=== PATIENT | male | born 1980 | race Caucasian/White ===

== ENCOUNTER 2018-05-14 15:22 | Inpatient (IN) | payer MEDICARE, MEDICAID ==
[~2018-05-14] VITALS: Ht 167.6 cm; Wt 102.0 kg
[~2018-05-14 15:22] MED LIST: BUPR150SR PO; LITH300T3 PO; QUET100T PO
[2018-05-14 17:59] LABS: BASOPHILS % (AUTO) 0.6 % (0.0-2.0); EOSINOPHILS % (AUTO) 0.9 % (1.0-6.0); HEMATOCRIT 43.8 % (41-53); HEMOGLOBIN 14.9 g/dL (13.5-17.5); LYMPHOCYTES % (AUTO) 23.9 % (22.0-44.0); MEAN CORPUSCULAR HEMOGLOBIN 29.2 pg (26.0-34.0); MEAN CORPUSCULAR VOLUME 86 fL (80-100); MONOCYTES # (AUTO) 0.9 K/uL (0.1-1.0); NEUTROPHILS # (AUTO) 8.6 K/uL (1.8-7.7); NEUTROPHILS % (AUTO) 67.6 % (40.0-70.0); PLATELET COUNT (AUTO) 219 K/uL (150-450); RED CELL DISTRIBUTION WIDTH 13.7 % (11.5-14.5)
[2018-05-14 18:11] LABS: ANION GAP 6 mmol/L (8-16); CALCIUM, TOTAL 8.8 mg/dL (8.8-10.5); CARBON DIOXIDE 29 mmol/L (22-29); CHLORIDE 103 mmol/L (98-107); CREATININE 1.03 mg/dL (0.60-1.30); GLOMERULAR FILTR. RATE CALC > 60 mL/min (>60); GLUCOSE,RANDOM 97 mg/dL (70-110); POTASSIUM 4.2 mmol/L (3.5-5.1); SODIUM SERUM 138 mmol/L (136-145); UREA NITROGEN, BLOOD 14 mg/dL (7-18)
[2018-05-14 18:15] LABS: ALANINE AMINOTRANSFERASE 72 U/L (12-78); ALKALINE PHOSPHATASE 63 U/L (46-116); ASPARTATE AMINOTRANSFERASE 27 U/L (15-37); BILIRUBIN,TOTAL 0.4 mg/dL (0.1-1.0); TOTAL PROTEIN, SERUM 7.6 g/dL (6.4-8.2)
[2018-05-14 18:23] LABS: LITHIUM < 0.20 mmol/L (0.60-1.20)
[2018-05-14] MEDS ORDERED: HYDR50CA10 PO (22:14)
[2018-05-14] MEDS ORDERED: DIVA500T52 PO (22:14)
[2018-05-14] MEDS ORDERED: QUET50TA PO ×2 (22:14)
[2018-05-14] MEDS ORDERED: GENTOS OP (22:14)
[2018-05-14] MEDS ORDERED: PANT40TA25 PO (22:14)
[2018-05-14] MEDS ORDERED: SIMV-259 PO (22:14)
[2018-05-14] MEDS ORDERED: RANI150T7 PO (22:14)
[2018-05-14] MEDS ORDERED: PROP20TA18 PO (22:14)
[2018-05-14] MEDS ORDERED: ASPI81 PO (22:14)
[2018-05-14] MEDS ORDERED: TRENTELLIX PO (22:14)
[2018-05-14 22:29] LABS: AMPHET/METH SCREEN,URINE NEGATIVE (NEGATIVE); BARBITURATE SCREEN, URINE NEGATIVE (NEGATIVE); BENZODIAZEPINES SCREEN,URINE NEGATIVE (NEGATIVE); CANNABINOID SCREEN,URINE POSITIVE (NEGATIVE); COCAINE SCREEN,URINE NEGATIVE (NEGATIVE); METHADONE SCREEN, URINE NEGATIVE (NEGATIVE); OPIATE SCREEN,URINE NEGATIVE (NEGATIVE)
[2018-05-14 22:30] LABS: PHENCYCLIDINE SCREEN,URINE NEGATIVE (NEGATIVE)
[2018-05-15] MEDS ORDERED: QUEtiapine FUMARATE 100 MG TABLET PO ONE (02:00)
[2018-05-15] MEDS ORDERED: LORazepam 2 MG TABLET PO PRN (03:15)
[2018-05-15] MEDS ORDERED: HALOPERIDOL 5 MG TABLET PO PRN (03:15)
[2018-05-15] MEDS ORDERED: ZOLPIDEM TARTRATE 10 MG TABLET PO PRN ×2 (03:15→23:00)
[2018-05-15 16:28] VITALS: BP 119/62
[2018-05-15 18:51] VITALS: BP 132/83
[2018-05-15] MEDS ORDERED: DiphenhydrAMINE HCL 50 MG/ML VIAL IM ONE (20:30)
[2018-05-15] MEDS ORDERED: LORazepam 2 MG/ML VIAL IM ONE (20:30)
[2018-05-15] MEDS ORDERED: ZOLPIDEM TARTRATE 5 MG TABLET PO PRN (23:12)
[2018-05-15] MEDS: QUEtiapine FUMARATE 100 MG TABLET PO PRN (23:15)
[2018-05-16] MEDS ORDERED: PNEUMOCOCCAL VACCINE POLYVALENT 0.5 ML VIAL [PPSV23] IM ONE (07:30)
[2018-05-16 07:56] LABS: CHOL/HDL RATIO 6.8 (4.2-7.3)
[2018-05-16] MEDS: PANTOPRAZOLE SODIUM 40 MG DR TABLET PO SCH (08:14)
[2018-05-16] MEDS: QUEtiapine FUMARATE 100 MG TABLET PO PRN (20:40)
[2018-05-16 21:38] VITALS: BP 123/67
[2018-05-16] MEDS: QUEtiapine FUMARATE 300 MG TABLET PO SCH (21:48)
[2018-05-17 08:17] VITALS: BP 108/68
[2018-05-17] MEDS: DIVALPROEX SODIUM 500 MG ER TABLET PO SCH (08:21)
[2018-05-17] MEDS: PANTOPRAZOLE SODIUM 40 MG DR TABLET PO SCH (08:21)
[2018-05-17 16:00] VITALS: BP 114/71
[2018-05-17] MEDS: QUEtiapine FUMARATE 300 MG TABLET PO SCH (20:43)
[2018-05-17] MEDS: HydrOXYzine PAMOATE 25 MG CAPSULE PO SCH (21:53)
[2018-05-17] MEDS: LORazepam 2 MG TABLET PO PRN (21:53)
[2018-05-18 09:19] VITALS: BP 126/70
[2018-05-18] MEDS: HydrOXYzine PAMOATE 25 MG CAPSULE PO SCH ×3 (09:30→16:47)
[2018-05-18] MEDS: DIVALPROEX SODIUM 500 MG ER TABLET PO SCH (09:30)
[2018-05-18] MEDS: PANTOPRAZOLE SODIUM 40 MG DR TABLET PO SCH (09:30)
[2018-05-18 16:43] VITALS: BP 130/62
[2018-05-18] MEDS: LORazepam 2 MG TABLET PO PRN (20:54)
[2018-05-18] MEDS: QUEtiapine FUMARATE 300 MG TABLET PO SCH (20:54)
[2018-05-19 07:06] LABS: BASOPHILS % (AUTO) 0.5 % (0.0-2.0); EOSINOPHILS % (AUTO) 1.2 % (1.0-6.0); HEMATOCRIT 41.9 % (41-53); HEMOGLOBIN 14.7 g/dL (13.5-17.5); LYMPHOCYTES # (AUTO) 3.5 K/uL (1.0-4.8); LYMPHOCYTES % (AUTO) 47.6 % (22.0-44.0); MEAN CORPUSCULAR HEMOGLOBIN 29.8 pg (26.0-34.0); MEAN CORPUSCULAR HGB CONC 34.9 G/dL (31.0-37.0); MEAN CORPUSCULAR VOLUME 85 fL (80-100); MONOCYTES # (AUTO) 0.6 K/uL (0.1-1.0); MONOCYTES % (AUTO) 8.9 % (2.0-9.0); NEUTROPHILS % (AUTO) 41.8 % (40.0-70.0); PLATELET COUNT (AUTO) 231 K/uL (150-450); RED BLOOD CELL COUNT(AUTO) 4.92 MIL/uL (4.50-5.90); RED CELL DISTRIBUTION WIDTH 13.6 % (11.5-14.5)
[2018-05-19 07:24] LABS: ALBUMIN 3.4 g/dL (3.4-5.0); BILIRUBIN,TOTAL 0.4 mg/dL (0.1-1.0); TOTAL PROTEIN, SERUM 7.2 g/dL (6.4-8.2)
[2018-05-19 07:25] LABS: CREATINE KINASE, TOTAL 384 U/L (39-308)
[2018-05-19 07:26] LABS: BILIRUBIN,DIRECT 0.1 mg/dL (0.00-0.20)
[2018-05-19] MEDS: PANTOPRAZOLE SODIUM 40 MG DR TABLET PO SCH (08:11)
[2018-05-19] MEDS: DIVALPROEX SODIUM 500 MG ER TABLET PO SCH (08:11)
[2018-05-19] MEDS: HydrOXYzine PAMOATE 25 MG CAPSULE PO SCH (08:11)
[2018-05-19 08:28] LABS: CREATINE KINASE MB 0.8 ng/mL (0-5)
[2018-05-19] MEDS ORDERED: QUET300T2 PO (11:03)
[2018-05-19] MEDS ORDERED: HYDR-4031 PO (11:15)
== END 2018-05-19 12:39 | disposition home or self-care (01) | DRG 885 ==
LOC: EMS 15:23 → AHU 05-15 10:46 → 3EX 05-15 18:15 → 3EC 05-15 22:09
PROVIDERS: ADMIT Psychiatry & Neurology Psychiatry; ATTEND Psychiatry & Neurology Psychiatry
DX: F31.64 Bipolar disorder, current episode mixed, severe, with psychotic features (principal); R45.851 Suicidal ideations; Z56.0 Unemployment, unspecified; G47.33 Obstructive sleep apnea (adult) (pediatric); E66.9 Obesity, unspecified; E78.5 Hyperlipidemia, unspecified; F12.90 Cannabis use, unspecified, uncomplicated; F17.210 Nicotine dependence, cigarettes, uncomplicated; F41.9 Anxiety disorder, unspecified; G47.00 Insomnia, unspecified; J44.9 Chronic obstructive pulmonary disease, unspecified; K21.9 Gastro-esophageal reflux disease without esophagitis; Z83.3 Family history of diabetes mellitus; Z91.19 Patient's noncompliance with other medical treatment and regimen; Z91.5 Personal history of self-harm; H10.9 Unspecified conjunctivitis; D72.829 Elevated white blood cell count, unspecified; R45.4 Irritability and anger; Z28.21 Immunization not carried out because of patient refusal
CPT/HCPCS: 83735; 99285; G0480; J1200; J2060; J3230